=== PATIENT | female | born 1970 | race African-American/Black ===

== ENCOUNTER 2022-05-27 19:41 | Emergency (ER) | payer OTHER ==
[2022-05-27 19:55] VITALS: BP 110/72; PULSE 82; RESP 19; TEMP 98.6; BMI 46.5
== END 2022-05-27 21:38 | disposition home or self-care (01) ==
LOC: JER 19:41
DX: R11.2 Nausea with vomiting, unspecified (principal)
CPT/HCPCS: 82962; 99283-25

== ENCOUNTER 2023-04-20 12:48 | Emergency (ER) | payer OTHER ==
[2023-04-20 13:02] VITALS: BP 111/57; PULSE 85; RESP 18; TEMP 98.8; BMI 41.3
[2023-04-20] MEDS ORDERED: ACETAMINOPHEN 500 MG TABLET (FP) PO ONE (15:10)
[2023-04-20] MEDS ORDERED: FLUCONAZOLE 150 MG TABLET PO ONE ×2 (15:10→15:13)
== END 2023-04-20 15:29 | disposition home or self-care (01) ==
LOC: JERFT 12:48
DX: R10.30 Lower abdominal pain, unspecified (principal); R30.0 Dysuria; N77.1 Vaginitis, vulvitis and vulvovaginitis in diseases classified elsewhere; N89.8 Other specified noninflammatory disorders of vagina
CPT/HCPCS: 99283-25